=== PATIENT | female | born 1985 | race Caucasian/White ===

== ENCOUNTER 2018-03-30 18:20 | Observation (INO) | payer OTHER ==
[~2018-03-30] VITALS: Ht 160 cm; Wt 106.6 kg
[2018-03-30 19:24] VITALS: BP 115/65
[2018-03-30] MEDS ORDERED: NACL 0.9% 1,000 ML IV ONE (20:35)
[2018-03-30] MEDS ORDERED: cefTRIAXone 2,000 MG in DEXTROSE 5% 100 ML IV SCH (21:00)
[2018-03-30] MEDS ORDERED: cefTRIAXone 1,000 MG VIAL ONE (21:34)
== END 2018-03-30 23:00 | disposition home or self-care (01) ==
LOC: MLD 18:20
PROVIDERS: ADMIT Obstetrics & Gynecology; ATTEND Obstetrics & Gynecology
DX: O62.9 Abnormality of forces of labor, unspecified (principal); O99.89 Other specified diseases and conditions complicating pregnancy, childbirth and the puerperium; M54.5 Low back pain; Z3A.28 28 weeks gestation of pregnancy
CPT/HCPCS: 76805; 96365; G0378; J0696; J7060; Q0092

== ENCOUNTER 2018-04-17 09:43 | Observation (INO) | payer OTHER ==
[~2018-04-17] VITALS: Ht 160 cm; Wt 105.2 kg
[2018-04-17 10:44] VITALS: BP 113/66
[2018-04-17] MEDS ORDERED: TERBUTALINE 1 MG/ML VIAL SUBQ SCH (11:00)
[2018-04-17] MEDS ORDERED: TERBUTALINE 1 MG/ML VIAL SUBQ ONE (11:06)
[2018-04-17] MEDS ORDERED: BETAMETH ACET/BETAMETH NA PH 30 MG/5 ML VIAL IM ONE ×2 (11:06→22:42)
[2018-04-17] MEDS ORDERED: AMPICILLIN 2,000 MG VIAL ONE ×3 (11:20→20:31)
[2018-04-17] MEDS: LACTATED RINGERS 1,000 ML IV SCH ×2 (11:46→20:01)
[2018-04-17] MEDS: AMPICILLIN 2,000 MG in NACL 0.9% 100 ML IV SCH ×2 (11:47→20:38)
[2018-04-17] MEDS ORDERED: BETAMETH ACET/BETAMETH NA PH 30 MG/5 ML VIAL IM SCH (12:00)
[2018-04-17] MEDS ORDERED: TERBUTALINE 2.5 MG TAB ONE ×2 (16:24→20:32)
[2018-04-17] MEDS ORDERED: TERBUTALINE 2.5 MG TAB PO SCH (17:00)
== END 2018-04-17 23:15 | disposition home or self-care (01) ==
LOC: MFCC 09:43
PROVIDERS: ADMIT Obstetrics & Gynecology; ATTEND Obstetrics & Gynecology
DX: O46.93 Antepartum hemorrhage, unspecified, third trimester (principal); Z3A.32 32 weeks gestation of pregnancy
CPT/HCPCS: 36415; 76805; 82731; 96365; 96366; 96372; G0378; J0290; J0702; J3105; J7120; Q0092

== ENCOUNTER 2018-04-21 11:49 | Observation (INO) | payer OTHER ==
[~2018-04-21] VITALS: Ht 157.5 cm; Wt 105.2 kg
[2018-04-21] MEDS ORDERED: FERR325E14 PO (12:24)
[2018-04-21] MEDS ORDERED: PREN-380 PO (12:24)
[2018-04-21 12:25] VITALS: BP 118/59
== END 2018-04-21 14:17 | disposition home or self-care (01) ==
LOC: MLD 11:49
PROVIDERS: ADMIT Obstetrics & Gynecology; ATTEND Obstetrics & Gynecology
DX: O62.9 Abnormality of forces of labor, unspecified (principal); Z3A.32 32 weeks gestation of pregnancy
CPT/HCPCS: 76815; G0378; Q0092

== ENCOUNTER 2018-04-24 09:16 | Observation (INO) | payer OTHER ==
[~2018-04-24] VITALS: Ht 160 cm; Wt 105.2 kg
[~2018-04-24 09:16] MED LIST: FERR325E14 PO; PREN-380 PO
[2018-04-24 13:38] VITALS: BP 120/63
== END 2018-04-24 11:25 | disposition home or self-care (01) ==
LOC: MLD 09:16
PROVIDERS: ADMIT Obstetrics & Gynecology; ATTEND Obstetrics & Gynecology
DX: O26.893 Other specified pregnancy related conditions, third trimester (principal); R10.9 Unspecified abdominal pain; Z3A.32 32 weeks gestation of pregnancy
CPT/HCPCS: 76815; G0378; Q0092

== ENCOUNTER 2018-04-28 09:32 | Observation (INO) | payer OTHER ==
[~2018-04-28] VITALS: Ht 162.6 cm; Wt 105.7 kg
[2018-04-28] MEDS ORDERED: TERBUTALINE 1 MG/ML VIAL SUBQ SCH (10:20)
[2018-04-28] MEDS ORDERED: TERBUTALINE 1 MG/ML VIAL SUBQ ONE (10:21)
== END 2018-04-28 11:50 | disposition home or self-care (01) ==
LOC: MLD 09:32
PROVIDERS: ADMIT Obstetrics & Gynecology; ATTEND Obstetrics & Gynecology
DX: O62.9 Abnormality of forces of labor, unspecified (principal); Z3A.33 33 weeks gestation of pregnancy
CPT/HCPCS: 59025; 76815; 96372; G0378; J3105; Q0092

== ENCOUNTER 2018-05-01 10:49 | Observation (INO) | payer OTHER ==
[~2018-05-01] VITALS: Ht 162.6 cm; Wt 105.2 kg
[2018-05-01] MEDS ORDERED: TERBUTALINE 1 MG/ML VIAL SUBQ ONE (11:56)
[2018-05-01 11:59] VITALS: BP 117/63
[2018-05-01] MEDS ORDERED: TERBUTALINE 1 MG/ML VIAL SUBQ SCH (12:00)
== END 2018-05-01 14:00 | disposition home or self-care (01) ==
LOC: MLD 10:49
PROVIDERS: ADMIT Obstetrics & Gynecology; ATTEND Obstetrics & Gynecology
DX: Z34.93 Encounter for supervision of normal pregnancy, unspecified, third trimester (principal); Z3A.33 33 weeks gestation of pregnancy
CPT/HCPCS: 59025; 81000; G0378; J3105

== ENCOUNTER 2018-05-05 12:40 | Observation (INO) | payer OTHER ==
[~2018-05-05] VITALS: Ht 157.5 cm; Wt 105.2 kg
[2018-05-05] MEDS ORDERED: TERBUTALINE 1 MG/ML VIAL SUBQ SCH (13:55)
[2018-05-05] MEDS ORDERED: TERBUTALINE 1 MG/ML VIAL SUBQ ONE (13:58)
== END 2018-05-05 15:05 | disposition home or self-care (01) ==
LOC: MLD 12:40
PROVIDERS: ADMIT Obstetrics & Gynecology; ATTEND Obstetrics & Gynecology
DX: O62.9 Abnormality of forces of labor, unspecified (principal); Z3A.37 37 weeks gestation of pregnancy
CPT/HCPCS: 59025; 76815; 96372; G0378; J3105

== ENCOUNTER 2018-05-08 11:59 | Inpatient (IN) | payer OTHER ==
[~2018-05-08] VITALS: Ht 160 cm; Wt 105.2 kg
[2018-05-08] MEDS ORDERED: TERBUTALINE 1 MG/ML VIAL SUBQ SCH (12:20)
[2018-05-08] MEDS ORDERED: TERBUTALINE 1 MG/ML VIAL SUBQ ONE (13:45)
[2018-05-08] MEDS ORDERED: BETAMETH ACET/BETAMETH NA PH 30 MG/5 ML VIAL IM ONE (13:45)
[2018-05-08] MEDS ORDERED: BETAMETH ACET/BETAMETH NA PH 30 MG/5 ML VIAL IM SCH (14:00)
[2018-05-08] MEDS ORDERED: NIFEdipine 10 MG CAPLF ONE ×3 (18:45→20:46)
[2018-05-08] MEDS: NIFEdipine 10 MG CAPLF PO SCH ×2 (19:37→20:46)
[2018-05-09] MEDS ORDERED: NIFEdipine 10 MG CAPLF ONE ×3 (01:03→09:12)
[2018-05-09] MEDS: NIFEdipine 10 MG CAPLF PO SCH (01:07)
[2018-05-09] MEDS ORDERED: PROMETHAZINE 25 MG/ML VIAL IM PRN (01:50)
[2018-05-09] MEDS ORDERED: NALBUPHINE 10 MG/ML AMP IVP PRN (01:50)
[2018-05-09] MEDS ORDERED: PROMETHAZINE 25 MG/ML VIAL ONE (02:05)
[2018-05-09] MEDS ORDERED: NALBUPHINE 10 MG/ML AMP ONE (02:05)
--- NOTE | 2018-05-09 06:35 | NUR ---
PATIENT HAS BEEN SCREENED AND CATEGORIZED LOW NUTRITION RISK. PATIENT WILL BE SEEN WITHIN 7 DAYS OF ADMISSION. 05/15/18 GONZALEZ REAL MBA, RD
[2018-05-09] MEDS ORDERED: LACTATED RINGERS 1,000 ML IV SCH (07:00)
[2018-05-09] MEDS ORDERED: BETAMETH ACET/BETAMETH NA PH 30 MG/5 ML VIAL IM ONE (12:00)
== END 2018-05-09 12:40 | disposition short-term general hospital (02) | DRG 563 ==
LOC: MLD 11:59 → MFCC 13:51 → OBSVTOIN 05-09 11:30
PROVIDERS: ADMIT Obstetrics & Gynecology; ATTEND Obstetrics & Gynecology
DX: O60.00 Preterm labor without delivery, unspecified trimester (principal); O34.219 Maternal care for unspecified type scar from previous cesarean delivery; Z3A.00 Weeks of gestation of pregnancy not specified
CPT/HCPCS: G0378 ×24; 76815; J0702; J2300; J2550; J3105; J7120; Q0092

== ENCOUNTER 2020-02-28 09:14 | Observation (INO) | payer MEDICAID, OTHER ==
[~2020-02-28] VITALS: Ht 157.5 cm; Wt 107.0 kg
[2020-02-28] MEDS ORDERED: BETAMETH ACET/BETAMETH NA PH 30 MG/5 ML VIAL IM ONE (09:34)
[2020-02-28] MEDS ORDERED: BETAMETH ACET/BETAMETH NA PH 30 MG/5 ML VIAL IM SCH (10:00)
[2020-02-28 10:24] VITALS: BP 120/57
== END 2020-02-28 09:57 | disposition home or self-care (01) ==
LOC: MLD 09:14
PROVIDERS: ADMIT Obstetrics & Gynecology; ATTEND Obstetrics & Gynecology
DX: O60.03 Preterm labor without delivery, third trimester (principal); Z3A.36 36 weeks gestation of pregnancy
CPT/HCPCS: 59025; 96372; G0378; J0702

== ENCOUNTER 2020-02-29 09:46 | Observation (INO) | payer MEDICAID ==
[~2020-02-29] VITALS: Ht 160 cm; Wt 104.3 kg
[~2020-02-29 09:46] MED LIST changes: -FERR325E14 PO
[2020-02-29] MEDS ORDERED: BETAMETH ACET/BETAMETH NA PH 30 MG/5 ML VIAL IM SCH (10:15)
[2020-02-29 11:14] VITALS: BP 119/70
== END 2020-02-29 11:40 | disposition home or self-care (01) ==
LOC: MLD 09:46
PROVIDERS: ADMIT Obstetrics & Gynecology; ATTEND Obstetrics & Gynecology
DX: O62.9 Abnormality of forces of labor, unspecified (principal); O60.03 Preterm labor without delivery, third trimester; O36.8130 Decreased fetal movements, third trimester, not applicable or unspecified; Z82.49 Family history of ischemic heart disease and other diseases of the circulatory system; Z83.3 Family history of diabetes mellitus; Z3A.36 36 weeks gestation of pregnancy
CPT/HCPCS: 81000; 96372; G0378; J0702

== ENCOUNTER 2020-03-17 05:29 | Inpatient (IN) | payer MEDICAID ==
[~2020-03-17] VITALS: Ht 160 cm; Wt 108.9 kg
[2020-03-17] MEDS ORDERED: LACTATED RINGERS 1,000 ML IV SCH (06:19)
[2020-03-17] MEDS ORDERED: CARBOPROST 250 MCG/ML AMP IM PRN (06:20)
[2020-03-17] MEDS ORDERED: METHYLERGONOVINE 0.2 MG/ML AMP IM PRN ×2 (06:20→09:10)
[2020-03-17] MEDS ORDERED: CITRIC ACID/SODIUM CITRATE 30 ML UDC PO ONE (06:30)
[2020-03-17 06:55] LABS: BASOPHILS % (AUTO) 0.2 % (0.0-2.0); EOSINOPHILS # (AUTO) 0.1 K/uL (0-0.4); HEMATOCRIT 35.3 % (36-48); HEMOGLOBIN 11.6 g/dL (12.0-16.0); LYMPHOCYTES # (AUTO) 1.9 K/uL (2.5-16.5); LYMPHOCYTES % (AUTO) 22.7 % (20.5-51.1); MEAN CORPUSCULAR HEMOGLOBIN 30 pg (27-31); MEAN CORPUSCULAR HGB CONC 33 g/dL (33-37); MEAN CORPUSCULAR VOLUME 89.5 fL (80-94); MONOCYTES % (AUTO) 11.5 % (1.7-9.3); NEUTROPHILS # (AUTO) 5.3 K/uL (1.8-7.7); NEUTROPHILS % (AUTO) 64.6 % (42.2-75.2); PLATELET COUNT (AUTO) 183 K/uL (140-450); RED BLOOD CELL COUNT(AUTO) 3.94 MIL/uL (4.20-5.40); RED CELL DISTRIBUTION WIDTH 13.7 % (11.6-13.7); WHITE BLOOD COUNT (AUTO) 8.2 K/uL (4.8-10.8)
[2020-03-17 06:55] LABS: APPEARANCE,URINE HAZY (CLEAR); BILIRUBIN,URINE NEGATIVE (NEGATIVE); BLOOD, URINE NEGATIVE (NEGATIVE); COLOR,URINE YELLOW (YELLOW); LEUKOCYTE ESTERASE ,URINE 2+ (NEGATIVE); NITRITE, URINE NEGATIVE (NEGATIVE); UGLUCOSE NEGATIVE (NEGATIVE)
[2020-03-17] MEDS ORDERED: ceFAZolin 1,000 MG VIAL ONE (07:21)
[2020-03-17] MEDS ORDERED: MIDAZOLAM 2 MG/2 ML VIAL ONE (07:34)
[2020-03-17] MEDS ORDERED: MORPHINE PRES FREE 10 MG/10 ML AMP IV ONE (07:35)
[2020-03-17 07:47] LABS: RBC,URINE 0-5 /HPF (0-5)
[2020-03-17] MEDS ORDERED: OXYTOCIN 20 UNITS in LACTATED RINGERS 1,000 ML IV SCH ×2 (08:22→22:20)
[2020-03-17] MEDS ORDERED: OXYTOCIN 20 UNITS/LR PREMIX 1,000 ML IV ONE ×2 (08:22→17:11)
[2020-03-17] MEDS ORDERED: MEPERIDINE 25 MG/ML SYR IVP PRN (08:25)
[2020-03-17] MEDS ORDERED: HYDROmorphone 1 MG/ML AMP IVP PRN (08:25)
[2020-03-17] MEDS ORDERED: ONDANSETRON 4 MG/2 ML VIAL IVP PRN ×2 (08:25)
[2020-03-17] MEDS ORDERED: NALOXONE 0.4 MG/ML VIAL IVP PRN ×3 (08:25)
[2020-03-17] MEDS ORDERED: diphenhydrAMINE 50 MG/ML VIAL IVP PRN ×2 (08:25)
[2020-03-17] MEDS ORDERED: NALBUPHINE 10 MG/ML AMP IVP PRN (08:25)
--- NOTE | 2020-03-17 08:38 | NUR ---
PATIENT HAS BEEN SCREENED AND CATEGORIZED LOW NUTRITION RISK. PATIENT WILL BE SEEN WITHIN 7 DAYS OF ADMISSION. 03/23/[address]
[2020-03-17] MEDS ORDERED: KETOROLAC 30 MG/ML VIAL IVP PRN (09:10)
[2020-03-17] MEDS ORDERED: MEASLES, MUMPS, AND RUBELLA 1 VIAL SQVAC PRN (09:10)
[2020-03-17] MEDS ORDERED: SIMETHICONE 80 MG TAB.CHEW PO PRN (09:10)
[2020-03-17] MEDS ORDERED: BISACODYL 5 MG TABEC PO PRN (09:10)
[2020-03-17] MEDS: KETOROLAC 30 MG/ML VIAL IM/IVP SCH ×2 (12:26→17:39)
[2020-03-18] MEDS: KETOROLAC 30 MG/ML VIAL IM/IVP SCH (00:02)
[2020-03-18] MEDS ORDERED: OXYTOCIN 20 UNITS/LR PREMIX 1,000 ML IV ONE (01:31)
[2020-03-18 06:05] LABS: BASOPHILS % (AUTO) 0.2 % (0.0-2.0); EOSINOPHILS # (AUTO) 0.1 K/uL (0-0.4); EOSINOPHILS % (AUTO) 1.2 % (0.0-4.0); HEMATOCRIT 31.4 % (36-48); HEMOGLOBIN 10.7 g/dL (12.0-16.0); LYMPHOCYTES # (AUTO) 1.4 K/uL (2.5-16.5); LYMPHOCYTES % (AUTO) 16.3 % (20.5-51.1); MEAN CORPUSCULAR HEMOGLOBIN 30 pg (27-31); MEAN CORPUSCULAR HGB CONC 34 g/dL (33-37); MONOCYTES # (AUTO) 0.8 K/uL (0.8-1.0); NEUTROPHILS # (AUTO) 6.2 K/uL (1.8-7.7); NEUTROPHILS % (AUTO) 73.3 % (42.2-75.2); PLATELET COUNT (AUTO) 134 K/uL (140-450); RED BLOOD CELL COUNT(AUTO) 3.53 MIL/uL (4.20-5.40); RED CELL DISTRIBUTION WIDTH 13.7 % (11.6-13.7); WHITE BLOOD COUNT (AUTO) 8.4 K/uL (4.8-10.8)
[2020-03-18] MEDS: oxyCODONE/APAP 5/325 MG 1 TAB TAB PO PRN ×3 (07:46→21:53)
[2020-03-18] MEDS ORDERED: IBUPROFEN 600 MG TAB PO PRN (12:30)
[2020-03-18] MEDS: IBUPROFEN 800 MG TAB PO PRN (13:00)
[2020-03-18] MEDS ORDERED: MORPHINE SULFATE 4 MG/ML SYR IVP PRN (13:50)
[2020-03-19] MEDS: IBUPROFEN 800 MG TAB PO PRN ×2 (05:54→15:27)
[2020-03-19] MEDS: oxyCODONE/APAP 5/325 MG 1 TAB TAB PO PRN ×2 (09:41→19:09)
[2020-03-19] MEDS ORDERED: CAMERA MC ONE (18:50)
== END 2020-03-19 19:43 | disposition home or self-care (01) | DRG 540 ==
LOC: MLD 05:29 → MFCC 12:48
PROVIDERS: ADMIT Obstetrics & Gynecology; ATTEND Obstetrics & Gynecology
PROC: 0UB70ZZ Excision of Bilateral Fallopian Tubes, Open Approach (ICD-10-PCS; 2020-03-17)
PROC: 10D00Z1 Extraction of Products of Conception, Low, Open Approach (ICD-10-PCS; principal; 2020-03-17 07:30)
DX: O69.81X0 Labor and delivery complicated by cord around neck, without compression, not applicable or unspecified (principal); D62 Acute posthemorrhagic anemia; O77.0 Labor and delivery complicated by meconium in amniotic fluid; O34.211 Maternal care for low transverse scar from previous cesarean delivery; E66.01 Morbid (severe) obesity due to excess calories; O99.214 Obesity complicating childbirth; Z3A.38 38 weeks gestation of pregnancy; Z37.0 Single live birth; Z30.2 Encounter for sterilization
CPT/HCPCS: 36415; 81001; 85025; 86592; 86886; 86900; 86901; 87086; 88302; J0690; J1885; J2250; J2270; J2405; J2590; J7060; J7120